=== PATIENT | male | born 1970 | race Caucasian/White ===

== ENCOUNTER 2022-12-28 07:33 | Observation (INO) ==
[2022-12-28] MEDS ORDERED: MoRPHine SULFATE 4 MG/ML 1 ML CARP\\VIAL IV STA ×5 (07:58→14:51)
[2022-12-28] MEDS ORDERED: ONDANSETRON INJ 2 MG/ML 2 ML VIAL IV STA (07:58)
[2022-12-28 08:05] LABS: iSTAT Creatinine 0.9 mg/dl (0.6-1.3); iSTAT Hemoglobin 15.3 g/dl (14.0-18.0); iSTAT Ionized Calcium 1.22 mmol/l (1.12-1.32); iSTAT Potassium 4.2 mmol/L (3.3-5.0)
--- NOTE | 2022-12-28 08:05 | Emergency Department Note ---
History of Present Illness General Chief complaint: Chest Pain Stated complaint: BURNING SENSATION IN CHEST, HX HEART ATTACK Time Seen by Provider: 12/28/22 07:47 Source: patient, family (Brother who is at the bedside and driving), RN notes reviewed and old records reviewed (Including a CAT scan of the chest done on 11-04-2020) Mode of arrival: ambulatory Limitations: no limitations History of Present Illness Maximum Pain Intensity: 8 This patient is a 52-year-old male who comes in with right-sided chest pain/righ t upper quadrant abdominal pain. It woke him up at around 4:00 this morning's been constant. He says nothing makes it better or worse he tried Pepto he walked around he took Tums without relief. No change with movement or breathing. He did take 3 baby aspirin at home he says it felt like he had indigestion. It hurts when he pushes on it as well. He does have a history of a heart attack and said that he was concerned he felt similar. He vomited. He has felt sweaty off and on. 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 He said he left his medicine in [facility] and is not taking his clopidogrel for 5 days. No trauma or injury. It does not rad iate to the back. He has had multiple orthopedic surgeries but still has his gallbladder. He did eat steak last night which she does not usually Home Medications Medication Instructions Recorded Confirmed Type aspirin 81 mg tablet,delayed 81 mg PO DAILY 11/04/20 12/28/22 History release atorvastatin 40 mg tablet 40 mg PO DAILY 11/04/20 12/28/22 History clopidogrel 75 mg tablet 75 mg PO DAILY 11/04/20 12/28/22 History lisinopril 5 mg tablet 5 mg PO DAILY 11/04/20 12/28/22 History nitroglycerin 0.4 mg sublingual 0.4 mg sublingual UD PRN Chest Pain 11/04/20 12/28/22 History tablet Allergies Allergy/AdvReac Type Severity Reaction Status Date / Time No Known Allergies Allergy Unverified 11/04/20 18:17 Past Med/Surg History Medical History History of OR (myocardial infarction) History of subdural hematoma On clopidogrel therapy Family History Other Family history non-contributory Social History Smoking Status: Unknown if ever smoked Tobacco Type: Cigarettes Feels Safe at Home: Yes Review of Systems A total of 10 systems reviewed and were otherwise negative Physical Exam Vital Signs Vital Signs - 24 hr 12/28/22 07:38 12/28/22 07:38 12/28/22 08:00 Temperature 36.5 C Temperature Source Oral Pulse Rate 63 61 Pulse Rate [Apical] Pulse Rhythm [Apical] Respiratory Rate 20 16 Respiratory Effort / Characteristics Non-Labored Spontaneous Non-Labored Spontaneous Respiratory Depth Normal Respiratory Pattern Regular Blood Pressure 179/105 H 154/91 H Blood Pressure [Right Arm] Blood Pressure Mean 129 112 Blood Pressure Mean [Right Arm] Blood Pressure Position [Right Arm] Pulse Oximetry 95 96 Oxygen Delivery Method Room Air Room Air Sepsis Recent Fever Within 48 Hours No Sepsis New/Unexplained Change in Mental Status N/A Sepsis Action Taken by Nursing No Action Required 12/28/22 08:17 12/28/22 08:30 12/28/22 09:00 Temperature Temperature Source Pulse Rate 70 64 63 Pulse Rate [Apical] Pulse Rhythm [Apical] Respiratory Rate 13 15 Respiratory Effort / Characteristics Respiratory Depth Respiratory Pattern Blood Pressure 137/85 165/95 H Blood Pressure [Right Arm] Blood Pressure Mean 102 118 Blood Pressure Mean [Right Arm] Blood Pressure Position [Right Arm] Pulse Oximetry 98 96 Oxygen Delivery Method Room Air Room Air Sepsis Recent Fever Within 48 Hours Sepsis New/Unexplained Change in Mental Status Sepsis Action Taken by Nursing 12/28/22 09:31 12/28/22 10:37 12/28/22 12:16 Temperature Temperature Source Pulse Rate 63 64 60 Pulse Rate [Apical] Pulse Rhythm [Apical] Respiratory Rate 15 16 Respiratory Effort / Characteristics Respiratory Depth Respiratory Pattern Blood Pressure 143/81 H 148/92 H Blood Pressure [Right Arm] Blood Pressure Mean 101 110 Blood Pressure Mean [Right Arm] Blood Pressure Position [Right Arm] Pulse Oximetry 96 96 Oxygen Delivery Method Room Air Room Air Sepsis Recent Fever Within 48 Hours Sepsis New/Unexplained Change in Mental Status Sepsis Action Taken by Nursing 12/28/22 13:37 Temperature Temperature Source Pulse Rate Pulse Rate [Apical] 54 L Pulse Rhythm [Apical] Regular Respiratory Rate 18 Respiratory Effort / Characteristics Non-Labored Spontaneous Respiratory Depth Normal Respiratory Pattern Regular Blood Pressure Blood Pressure [Right Arm] 115/70 Blood Pressure Mean Blood Pressure Mean [Right Arm] 85 Blood Pressure Position [Right Arm] Lying Pulse Oximetry 18 L Oxygen Delivery Method Sepsis Recent Fever Within 48 Hours Sepsis New/Unexplained Change in Mental Status Sepsis Action Taken by Nursing General: Well developed well nourished middle-age male who appears uncomfortable but in no acute respiratory distress, breathing comfortably on room air. Normal speech HEENT: Normal cephalic atraumatic. Pupils are equal round and reactive to light. Extraocular movements are intact. Oropharynx is pink with moist mucous membranes. No swelling of the mouth lips or tongue. Neck: Supple with a midline trachea. No meningeal signs or stiffness, no JVD or bruits. No Stridor. Chest: Clear to auscultation bilaterally. No wheezes or rhonchi. No increased work of breathing. Heart: Regular rate and rhythm without murmurs or gallops. Abdomen: Soft, he significantly reproducibly tender in the right upper quadrant. No rash. And, nondistended without rebound guarding or rigidity. Extremities: No cyanosis clubbing or edema. No calf tenderness or assymetry Spine/Back. Non tender to palpation. No CVA tenderness Skin: Good turgor without rashes. Neurologic exam: Cranial nerves two through 12 are intact. Motor and sensation are intact and symmetrical throughout. Course Administered Medications Sodium Chloride (Nss) 1,000 mls @ 125 mls/hr IV .Q8H POLLY Stop: 01/27/23 14:59 Last Admin: 12/28/22 14:59 Dose: 125 mls/hr Documented By: YIMI Discontinued Medications Piperacillin Sod/Tazobactam Sod (Zosyn) 4.5 gm in 100 mls @ 200 mls/hr IV NOW ONE Stop: 12/28/22 11:46 Last Infusion: 12/28/22 12:08 Dose: 0 mls/hr Documented By: Admin: 12/28/22 11:30 Dose: 200 mls/hr Documented By: YIMI Sodium Chloride (Nss) 1,000 mls @ 999 mls/hr IV .Q1H1M ONE Stop: 12/28/22 12:20 Last Infusion: 12/28/22 12:47 Dose: 0 mls/hr Documented By: Admin: 12/28/22 11:30 Dose: 999 mls/hr Documented By: YIMI Ioversol (Optiray 320 500ml) 108 ml IV ONCE ONE Stop: 12/28/22 09:48 Last Admin: 12/28/22 09:47 Dose: 108 ml Documented By: SAMSON Morphine Sulfate (Morphine Sulfate 4 Mg/Ml 1 Ml Carp\Vial) 4 mg IV NOW STA Stop: 12/28/22 07:59 Last Admin: 12/28/22 08:07 Dose: 4 mg Documented By: JANI Morphine Sulfate (Morphine Sulfate 4 Mg/Ml 1 Ml Carp\Vial) 4 mg IV NOW STA Stop: 12/28/22 09:22 Last Admin: 12/28/22 09:26 Dose: 4 mg Documented By: JANI Morphine Sulfate (Morphine Sulfate 4 Mg/Ml 1 Ml Carp\Vial) 4 mg IV NOW STA Stop: 12/28/22 11:02 Last Admin: 12/28/22 11:11 Dose: 4 mg Documented By: YIMI Morphine Sulfate (Morphine Sulfate 4 Mg/Ml 1 Ml Carp\Vial) 4 mg IV NOW STA Stop: 12/28/22 12:24 Last Admin: 12/28/22 12:28 Dose: 4 mg Documented By: YIMI Morphine Sulfate (Morphine Sulfate 4 Mg/Ml 1 Ml Carp\Vial) 4 mg IV NOW STA Stop: 12/28/22 14:52 Last Admin: 12/28/22 14:58 Dose: 4 mg Documented By: YIMI Ondansetron HCl (Ondansetron Inj 2 Mg/Ml 2 Ml Vial) 4 mg IV NOW STA Stop: 12/28/22 07:59 Last Admin: 12/28/22 08:07 Dose: 4 mg Documented By: JANI Medical Decision Making Differential Diagnosis Acute coronary syndrome, arrhythmia, gallbladder disease, pneumothorax, pulmonary disease, electrolyte or metabolic abnormality, infection Medical Records Attestation: I reviewed the patient's medical records. Home Medications Current Medication List: was personally reviewed by me Laboratory Data Attestation: I reviewed the patient's lab results. 12/28/22 07:45 12/28/22 07:45 Lab Results 12/28/22 12/28/22 12/28/22 Range/Units 07:45 07:45 07:45 WBC 9.16 (4.8-10.8) K/ul RBC 4.86 (4.70-6.10) M/uL Hgb 15.1 (14.0-18.0) g/dl POC Hgb (14.0-18.0) g/dl Hct 43.9 (42.0-52.0) % POC Hct (42-52) % MCV 90.3 (80.0-100.0) fL MCH 31.1 (25.0-34.0) pg MCHC 34.4 (32.0-36.0) g/dL RDW Std Deviation 39.3 (36.4-46.3) fL RDW Coeff of Candie 12.0 (11.5-14.5) % Plt Count 204 (130-400) K/uL MPV 10.1 (9.4-12.4) fL Immature Gran % (Auto) 0.3 % Neut % (Auto) 64.1 % Lymph % (Auto) 22.5 % [place] % (Auto) 9.1 % Eos % (Auto) 3.3 % Baso % (Auto) 0.7 % Neut # (Auto) 5.88 (1.40-6.50) K/uL Lymph # (Auto) 2.06 (1.20-3.40) K/uL [place] # (Auto) 0.83 H (0.11-0.59) K/uL Eos # (Auto) 0.30 (0.00-0.50) K/uL Baso # (Auto) 0.06 (0.00-0.20) K/uL Immature Gran # (Auto) 0.03 (0.01-0.20) K/uL PT 9.8 (9.0-12.0) Seconds INR 0.9 (0.9-1.1) APTT 28.9 (21.0-31.0) Seconds PTT Ratio 1.0 D-Dimer 250 (0-500) ug/L FEU POC Sodium (135-144) mmol/L Sodium 135 L (136-145) mmol/L POC Potassium (3.3-5.0) mmol/L Potassium 4.2 (3.5-5.1) mmol/L POC Chloride (101-112) mmol/L Chloride 104 (98-107) mmol/L Carbon Dioxide 25 (21-32) mmol/L POC Total CO2 (24-31) mmol/L Anion Gap 6 (3-11) POC Anion Gap (16-25) mmol/L POC BUN (7-18) mg/dl BUN 14 (6-23) mg/dl Creatinine 0.92 (0.6-1.4) mg/dl POC Creatinine (0.6-1.3) mg/dl Est Cr Clr Drug Dosing 120.4 ml/min Est GFR ( Amer) 110.4 ml/min Est GFR (Non-Af Amer) 95.3 ml/min BUN/Creatinine Ratio 15.2 (10-20) Glucose 113 H (70-99(Fasting)) mg/dl POC Glucose (other) (70-99) mg/dl Calcium 9.2 (8.6-10.3) mg/dl POC Ioniz Calcium Nicole (1.12-1.32) mmol/l Total Bilirubin 0.4 (0.2-1.0) mg/dl AST 29 (13-39) U/L ALT 25 (7-52) U/L Alkaline Phosphatase 83 (34-104) U/L Troponin I High Sens 4.1 (0-20) pg/ml Total Protein 7.6 (6.0-8.3) gm/dl Albumin 4.0 (3.4-5.0) gm/dl Globulin 3.6 (2.5-4.0) gm/dl Albumin/Globulin Ratio 1.1 (0.9-2) Lipase 37 (11-82) U/L Urine Color Urine Appearance (Clear) Urine pH (4.5-7.5) Ur Specific [place] (1.000-1.030) Urine Protein (Negative) Urine Glucose (UA) (Negative) Urine Ketones (Negative) Urine Blood (Negative) Urine Nitrite (Negative) Urine Bilirubin (Negative) Urine Urobilinogen (Negative) Ur Leukocyte Esterase (Negative) 12/28/22 12/28/22 12/28/22 Range/Units 07:52 09:19 10:05 WBC (4.8-10.8) K/ul RBC (4.70-6.10) M/uL Hgb (14.0-18.0) g/dl POC Hgb 15.3 (14.0-18.0) g/dl Hct (42.0-52.0) % POC Hct 45 (42-52) % MCV (80.0-100.0) fL MCH (25.0-34.0) pg MCHC (32.0-36.0) g/dL RDW Std Deviation (36.4-46.3) fL RDW Coeff of Candie (11.5-14.5) % Plt Count (130-400) K/uL MPV (9.4-12.4) fL Immature Gran % (Auto) % Neut % (Auto) % Lymph % (Auto) % [place] % (Auto) % Eos % (Auto) % Baso % (Auto) % Neut # (Auto) (1.40-6.50) K/uL Lymph # (Auto) (1.20-3.40) K/uL [place] # (Auto) (0.11-0.59) K/uL Eos # (Auto) (0.00-0.50) K/uL Baso # (Auto) (0.00-0.20) K/uL Immature Gran # (Auto) (0.01-0.20) K/uL PT (9.0-12.0) Seconds INR (0.9-1.1) APTT (21.0-31.0) Seconds PTT Ratio D-Dimer (0-500) ug/L FEU POC Sodium 137 (135-144) mmol/L Sodium (136-145) mmol/L POC Potassium 4.2 (3.3-5.0) mmol/L Potassium (3.5-5.1) mmol/L POC Chloride 103 (101-112) mmol/L Chloride (98-107) mmol/L Carbon Dioxide (21-32) mmol/L POC Total CO2 27 (24-31) mmol/L Anion Gap (3-11) POC Anion Gap 12.0 L (16-25) mmol/L POC BUN 15 (7-18) mg/dl BUN (6-23) mg/dl Creatinine (0.6-1.4) mg/dl POC Creatinine 0.9 (0.6-1.3) mg/dl Est Cr Clr Drug Dosing ml/min Est GFR ( Amer) ml/min Est GFR (Non-Af Amer) ml/min BUN/Creatinine Ratio (10-20) Glucose (70-99(Fasting)) mg/dl POC Glucose (other) 118 H (70-99) mg/dl Calcium (8.6-10.3) mg/dl POC Ioniz Calcium Nicole 1.22 (1.12-1.32) mmol/l Total Bilirubin (0.2-1.0) mg/dl AST (13-39) U/L ALT (7-52) U/L Alkaline Phosphatase (34-104) U/L Troponin I High Sens 4.2 (0-20) pg/ml Total Protein (6.0-8.3) gm/dl Albumin (3.4-5.0) gm/dl Globulin (2.5-4.0) gm/dl Albumin/Globulin Ratio (0.9-2) Lipase (11-82) U/L Urine Color Yellow Urine Appearance Clear (Clear) Urine pH 6.0 (4.5-7.5) Ur Specific [place] 1.011 (1.000-1.030) Urine Protein Negative (Negative) Urine Glucose (UA) Negative (Negative) Urine Ketones Negative (Negative) Urine Blood Negative (Negative) Urine Nitrite Negative (Negative) Urine Bilirubin Negative (Negative) Urine Urobilinogen Negative (Negative) Ur Leukocyte Esterase Negative (Negative) Imaging Data Attestation: I personally reviewed and interpreted this imaging study as follows: My Impression: Chest x-rayno acute infiltrate, failure, pneumothorax seen CT angiography of the chestno evidence of PE Radiologist's Impression: Chest X-Ray 12/28/22 07:58 XR chest 1V portable CLINICAL HISTORY: Chest pain, nonspecific TECHNIQUE: Single frontal radiograph of the chest was obtained. Comparison: Comparison is made to CT chest 11/04/2020 FINDINGS: No lines and tubes are seen. The cardiomediastinal silhouette is normal. The lungs are clear. No evidence of pleural effusion or pneumothorax. IMPRESSION: No acute chest disease. ACT 112: Negative or not required by law. Electronically signed by: Ke Garcia M.D. 12/28/2022 8:49 AM Abdomen/Pelvis CT 12/28/22 09:[address] WITH IV CONTRAST CT DOSE: 2519.96 mGy.cm HISTORY: Right upper quadrant pain. TECHNIQUE: Multiaxial CT images of the abdomen and pelvis were performed foll owing the use of intravenous contrast. A dose lowering technique was utilized adhering to the principles of ALARA. COMPARISON STUDY: Abdomen and pelvis CT 11/04/2020. FINDINGS: The lung bases will be reported on the same day chest CTA. No pneumoperitoneum. No pneumatosis. Old, healed right lower rib fracture. L5-S1 posterior decompression and fusion with pedicle screws and rods. The liver, pancreas, spleen, adrenal glands, and right kidney are unremarkable. There is a 4 mm stone within the lower pole of the left kidney. No ureteral stones. No hydronephrosis. The main portal vein is patent. Normal caliber abdominal aorta with mild calcified plaque. No retroperitoneal or pelvic lymphadenopathy. The gallbladder is mildly distended. There is mild gallbladder wall thickening and a small amount of pericholecystic fluid. These findings are suspicious for an acute cholecystitis. No pelvic free fluid. Normal bladder. No bowel wall thickening or obstruction. Normal appendix. IMPRESSION: Mildly distended gallbladder demonstrating a thickened wall and a small amount of pericholecystic fluid. These findings are suspicious for an acute cholecystitis. Surgical consultation recommended. ACT 112: Negative or not required by law. Electronically signed by: Bernardo Christopher M.D. 12/28/2022 10:24 AM Chest CTA 12/28/22 09:20 CT angio chest PE protocol CLINICAL HISTORY: PE TECHNIQUE: Multidetector row helical CT of the chest was performed with angiographic protocol. Coronal and sagittal reformations were obtained. Coronal and sagittal MIPS were obtained from the axial data set and were submitted for review. Automated dose lowering techniques and/or adjustment according to p atient size were utilized for this exam. Comparison: Comparison is made to CT chest 11/14/2020 FINDINGS: Lungs and pleura: Atelectasis versus scarring is seen in the dependent portions of the lungs. There is a 3 mm nodule in the left upper lobe (series 4 image 157) and a 3 mm nodule in the left upper lobe (image 178). Heart and pericardium: Heart size is normal. No pericardial effusion. Vessels: No evidence of pulmonary embolism. Mediastinum and bunny: Unremarkable. Chest wall and lower neck: Unremarkable. Abdomen: For findings below the diaphragm, please refer to CT of the abdomen dated the same. Bones: Mild degenerative changes are seen. IMPRESSION: No acute abnormality and in particular no evidence of pulmonary embolus. Stable tiny pulmonary nodules as above. ACT 112: Negative or not required by law. Electronically signed by: Ke Garcia M.D. 12/28/2022 10:26 AM ECG Data Attestation: I personally reviewed and interpreted this ECG as follows: Indication: + chest pain Rate (beats per minute): 60 Rhythm: + normal sinus ECG Intervals/blocks: + Incomplete right bundle branch block ECG [place]: + Normal ECG ST segments: + Normal ST segments ECG Findings: no PACs or no PVCs Comparison ECG Date: from (11/04/2020) Change: no significant change MDM Narrative This patient comes in as described above. He was placed in room A11. I saw him promptly. He has been having persistent chest pain for about 4 hours now. His EKG shows no ischemic changes to suggest STEMI at this point his pain is very reproducible in the right upper quadrant as this could also be gallbladder, a significant cardiac work-up was obtained. His i-STAT labs were unremarkable in regards to kidney function and electrolytes and hemoglobin. His brother is at the bedside and driving. He has already taken aspirin. He was given morphine 4 mg IV and Zofran 4 mg IV. Chest x-ray multiple blood testing was obtained he was reassessed frequently. Chest x-ray was unremarkable. Cardiac enzymes/tr oponin x2 was unremarkable done 2 hours apart. He has no significant acrylate or metabolic abnormalities no white count or fever discussed infection has normal LFTs and lipase. I did do a CT angiography of the chest there is no evidence of PE I continued through the abdomen and the gallbladder appears to be distended with findings consistent likely with acute cholecystitis he examines like acute cholecystitis. I did consult surgery and Jillian Corona saw the patient in the ER. She initially told me to do an ultrasound but after seeing the patient she canceled it and said they are just going to take him to the OR. I did give the patient antibiotics with Zosyn 4.5 g IV. He was hydrated with an 1 L IV normal saline bolus and kept on normal saline 125-hour maintenance rate. He was kept n.p.o. for anticipated surgery. He has required multiple doses of IV morphine while he was in the ER but has remained stable. He will go to the OR from the emergency department for cholecystectomy and be admitted by the surgical team. He is on clopidogrel however he has not taken it for 5 days as he left his medication in [place]. 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 of antithrombotics/antiplatelets Discharge Plan Visit Data Chief Complaint: Chest Pain Stated Complaint: BURNING SENSATION IN CHEST, HX HEART ATTACK ED Provider: Sammy Guerra Discharge Problem: Acute cholecystitis, Chest pain, Abdominal pain, senior living (current) use of antithrombotics/antiplatelets Forms Stand Alone Forms: My [facility] Prescriptions Prescriptions: No Action atorvastatin 40 mg tablet 40 mg PO DAILY clopidogrel 75 mg tablet 75 mg PO DAILY aspirin 81 mg tablet,delayed release (DR/EC) 81 mg PO DAILY nitroglycerin 0.4 mg tablet, sublingual 0.4 mg sublingual UD PRN (Reason: Chest Pain) lisinopril 5 mg tablet 5 mg PO DAILY Referrals Referrals: PCP,NO [Primary Care Provider] -
[2022-12-28 08:22] LABS: Basophils # (auto) 0.06 K/uL (0.00-0.20); Basophils % (auto) 0.7 %; Eosinophils % (auto) 3.3 %; Hematocrit (blood only) 43.9 % (42.0-52.0); Hemoglobin 15.1 g/dl (14.0-18.0); Immature Granulocytes # (auto) 0.03 K/uL (0.01-0.20); Immature Granulocytes % (auto) 0.3 %; Lymphocytes # (auto) 2.06 K/uL (1.20-3.40); Lymphocytes % (auto) 22.5 %; Mean Corpuscular Hemoglobin 31.1 pg (25.0-34.0); Mean Corpuscular Hgb Conc 34.4 g/dL (32.0-36.0); Mean Corpuscular Volume 90.3 fL (80.0-100.0); Mean Platelet Volume 10.1 fL (9.4-12.4); Monocytes # (auto) 0.83 K/uL (0.11-0.59); Monocytes % (auto) 9.1 %; Neutrophils # (auto) 5.88 K/uL (1.40-6.50); Neutrophils % (auto) 64.1 %; Platelet Count 204 K/uL (130-400); RDW Standard Deviation 39.3 fL (36.4-46.3); Red Blood Count 4.86 M/uL (4.70-6.10); White Blood Count 9.16 K/ul (4.8-10.8)
[2022-12-28 08:40] LABS: Albumin Globulin Ratio 1.1 (0.9-2); BUN Creatinine Ratio 15.2 (10-20); Bilirubin,Total 0.4 mg/dl (0.2-1.0); Calcium 9.2 mg/dl (8.6-10.3); Creatinine Clr Calc Pharmacy 120.4 ml/min; Est GFR (African American) 110.4 ml/min; Est GFR (Non-African American) 95.3 ml/min; Globulin 3.6 gm/dl (2.5-4.0); Total Protein 7.6 gm/dl (6.0-8.3)
[2022-12-28 08:41] LABS: Troponin I High Sensitivity 4.1 pg/ml (0-20)
[2022-12-28 08:45] LABS: Potassium 4.2 mmol/L (3.5-5.1)
--- NOTE | 2022-12-28 08:51 | XRay Report ---
XR chest 1V portable CLINICAL HISTORY: Chest pain, nonspecific TECHNIQUE: Single frontal radiograph of the chest was obtained. Comparison: Comparison is made to CT chest 11/04/2020 FINDINGS: No lines and tubes are seen. The cardiomediastinal silhouette is normal. The lungs are clear. No evid ence of pleural effusion or pneumothorax. IMPRESSION: No acute chest disease. ACT 112: Negative or not required by law. Electronically signed by: Ke Garcia M.D. 12/28/2022 8:49 AM
[2022-12-28 08:55] LABS: D Dimer 250 ug/L FEU (0-500); INR 0.9 (0.9-1.1); Partial Thromboplastin Time 28.9 Seconds (21.0-31.0); Prothrombin Time 9.8 Seconds (9.0-12.0)
[2022-12-28 09:43] LABS: Appearance Urine Clear (Clear); Bilirubin Urine Negative (Negative); Blood Urine Negative (Negative); Color Urine Yellow; Glucose Urine UA Negative (Negative); Ketones Urine Negative (Negative); Leukocyte Esterase Urine Negative (Negative); Nitrite Urine Negative (Negative); Protein Urine Negative (Negative); Specific Gravity Urine 1.011 (1.000-1.030); Urobilinogen Urine Negative (Negative)
--- NOTE | 2022-12-28 09:43 | Electrocardiogram Report ---
Test Reason : Blood Pressure : / mmHG Vent. Rate : 060 BPM Atrial Rate : 060 BPM P-R Int : 168 ms QRS Dur : 106 ms QT Int : 420 ms P-R-T Axes : 010 022 070 degrees QTc Int : 420 ms Normal sinus rhythm Incomplete right bundle branch block Borderline ECG When compared with ECG of 04-NOV-2020 18:17, Incomplete right bundle branch block is now Present Confirmed by Krishna Cooper ([id number]) on 12/28/2022 9:42:38 AM Referred By: Confirmed By:Ji Cooper
[2022-12-28] MEDS ORDERED: OPTIRAY 320 500ml IV ONE (09:47)
--- NOTE | 2022-12-28 10:26 | CT Scan Report ---
ABDOMEN AND PELVIS CT WITH IV CONTRAST CT DOSE: 2519.96 mGy.cm HISTORY: Right upper quadrant pain. TECHNIQUE: Multiaxial CT images of the abdomen and pelvis were performed following the use of intrave nous contrast. A dose lowering technique was utilized adhering to the principles of ALARA. COMPARISON STUDY: Abdomen and pelvis CT 11/04/2020. FINDINGS: The lung bases will be reported on the same day chest CTA. No pneumoperitoneum. No pneumato sis. Old, healed right lower rib fracture. L5-S1 posterior decompression and fusion with pedicle scre ws and rods. The liver, pancreas, spleen, adrenal glands, and right kidney are unremarkable. There is a 4 mm stone within the lower pole of the left kidney. No ureteral stones. No hydronephrosis. The ma in portal vein is patent. Normal caliber abdominal aorta with mild calcified plaque. No retroperitone al or pelvic lymphadenopathy. The gallbladder is mildly distended. There is mild gallbladder wall thi ckening and a small amount of pericholecystic fluid. These findings are suspicious for an acute franco cystitis. No pelvic free fluid. Normal bladder. No bowel wall thickening or obstruction. Normal appen sharonda. IMPRESSION: Mildly distended gallbladder demonstrating a thickened wall and a small amount of pericholecystic flu id. These findings are suspicious for an acute cholecystitis. Surgical consultation recommended. ACT 112: Negative or not required by law. Electronically signed by: Bernardo Christopher M.D. 12/28/2022 10:24 AM
--- NOTE | 2022-12-28 10:28 | CT Scan Report ---
CT angio chest PE protocol CLINICAL HISTORY: PE TECHNIQUE: Multidetector row helical CT of the chest was performed with angiographic protocol. Yuen l and sagittal reformations were obtained. Coronal and sagittal MIPS were obtained from the axial nat a set and were submitted for review. Automated dose lowering techniques and/or adjustment according to patient size were utilized for this exam. Comparison: Comparison is made to CT chest 11/14/2020 FINDINGS: Lungs and pleura: Atelectasis versus scarring is seen in the dependent portions of the lungs. There i s a 3 mm nodule in the left upper lobe (series 4 image 157) and a 3 mm nodule in the left upper lobe (image 178). Heart and pericardium: Heart size is normal. No pericardial effusion. Vessels: No evidence of pulmonary embolism. Mediastinum and bunny: Unremarkable. Chest wall and lower neck: Unremarkable. Abdomen: For findings below the diaphragm, please refer to CT of the abdomen dated the same. Bones: Mild degenerative changes are seen. IMPRESSION: No acute abnormality and in particular no evidence of pulmonary embolus. Stable tiny pulmonary nodule s as above. ACT 112: Negative or not required by law. Electronically signed by: Ke Garcia M.D. 12/28/2022 10:26 AM
--- NOTE | 2022-12-28 11:16 | Surgery Consultation ---
Date of Consultation December 28, 2022 Assessment & Plan (1) Abdominal pain: Pateint is a 52 yo male with PMH of heart attack , HDL, that presented to the [facility] ER today with c/o chest pain that started this morning while sleeping at 0400. Patient describes CP as stabbing , sharp that radiates from the right side of his chest to the left which he notes felt similar to his last heart attack. Patient has had an EKG, Chest xray, Chest ABdominal/ pelvis CT all of which including labs have been negative for an acute Cardiac event. Patient report he ate steak last night for dinner around 0 and last drank sips of H2O this AM. 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 Patient reports he mistakenly forgot all his medication in [place] and has been without his Clopidogrel and atorvastatin for the last 5 days. He has however been taking aspirin 81mg and lisinopril which he had here. WBC and LFT WNL CT scan IMPRESSION: Mildly distended gallbladder demonstrating a thickened wall and a small amount of pericholecystic fluid. These findings are suspicious for an acute cholecystitis. Surgical consultation recommended. Patient at risk for a blood clot given he has not been taking his Clopidogrel Keep NPO Discussed with on-call surgeon Dr. Richardson Will add patient to the OR schedule for a Laparoscopic Cholecystectomy As above. Patient seen. CT scan reviewed. Patient with right upper quadrant pain. Gallbladder wall thickening and pericholecystic fluid on imaging. Discussed the risks and options. Recommend cholecystectomy. Discussed bleeding, infection, injury to a bile duct or bile leak, injury to other organs, DVT, PE, OR, CVA etc. Following our discussion I answered all of his questions. He agrees with the plan. We will proceed this afternoon with laparoscopic cholecystectomy. History of Present Illness Reason for Consultation: RUQ pain Requesting Physician: Dr. Guerra History of Present Illness Pateint is a 52 yo male with PMH of heart attack , HDL, that presented to the [facility] ER today with c/o chest pain that started this morning while sleeping at 0400. Patient describes CP as stabbing , sharp that radiates from the right side of his chest to the left which he notes felt similar to his last heart attack. Patient has had an EKG, Chest xray, Chest ABdominal/ pelvis CT all of which including labs have been negative for an acute Cardiac event. Patient report he ate steak last night for dinner around 2130 and last drank sips of H2O this AM. 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 Patient reports he mistakenly forgot all his medication in [place] and has been without his Clopidogrel and atorvastatin for the last 5 days. He has however been taking aspirin 81mg and lisinopril which he had here. Denies past abdominal surgery. Allergies Allergy/AdvReac Type Severity Reaction Status Date / Time No Known Allergies Allergy Unverified 11/04/20 18:17 Home Medications Medication Instructions Recorded Confirmed Type aspirin 81 mg tablet,delayed 81 mg PO DAILY 11/04/20 12/28/22 History release atorvastatin 40 mg tablet 40 mg PO DAILY 11/04/20 12/28/22 History clopidogrel 75 mg tablet 75 mg PO DAILY 11/04/20 12/28/22 History lisinopril 5 mg tablet 5 mg PO DAILY 11/04/20 12/28/22 History nitroglycerin 0.4 mg sublingual 0.4 mg sublingual UD PRN Chest Pain 11/04/20 12/28/22 History tablet Patient History Medical History History of [place] (myocardial infarction) History of subdural hematoma On clopidogrel therapy Family History Other Family history non-contributory Social History Smoking Status: Unknown if ever smoked Tobacco Type: Cigarettes Feels Safe at Home: Yes Review of Systems Constitutional: no fever and no chills Respiratory: no dyspnea Cardiovascular: + chest pain; no dyspnea on exertion Gastrointestinal: no nausea and no vomiting Genitourinary: no problem reported Physical Exam Physical Exam: alert oriented Constitutional: well developed, cooperative and comfortable; no acute distress Respiratory: normal respiratory effort and able to speak in complete sentences; no respiratory distress Cardiovascular: Rate/Rhythm: regular rate EKG was read negative for acute cardiac event Gastrointestinal (Abdomen): Percussion/Palpation: + abdomen tender, + guarding and abdomen soft TTP in RUQ rates pain a 6/10 , obese abdomen Results & Data Vital Signs (Past 12 Hours) Vital Signs Temp Pulse Resp BP Pulse Ox O2 Del Method 12/28/22 10:37 64 16 148/92 H 96 Room Air 12/28/22 09:31 63 15 143/81 H 96 Room Air 12/28/22 09:00 63 15 165/95 H 96 Room Air 12/28/22 08:30 64 13 137/85 98 Room Air 12/28/22 08:17 70 12/28/22 08:00 61 16 154/91 H 96 Room Air 12/28/22 07:38 97.7 F 63 20 179/105 H 95 Room Air Diagnostic Findings [place], [place] [phone] CT Scan Report Patient:OTF GUTIERREZ Admit Date:12/28/22 MR#:[id number] Address1:[address] [place] [address] Acct ID:[id number] Address2: Date:1970 [facility] Zip:[place] [address] Age:52 Location:ED Sex:M Room/Bed: Att Phy: Diagnosis:BURNING SENSATION IN CHEST, HX HEART ATTACK Sofy Phy:PCP,NO Service Date:12/28/22 Fam Phy: Interpreting Phy:Bernardo Christopher MDAdmit Phy: Ordering Phy:Sammy Guerra M.D. cc: ABDOMEN AND PELVIS CT WITH IV CONTRAST CT DOSE: 2519.96 mGy.cm HISTORY: Right upper quadrant pain. TECHNIQUE: Multiaxial CT images of the abdomen and pelvis were performed following the use of intravenous contrast. A dose lowering technique was utilized adhering to the principles of ALARA. COMPARISON STUDY: Abdomen and pelvis CT 11/04/2020. FINDINGS: The lung bases will be reported on the same day chest CTA. No pneumoperitoneum. No pneumatosis. Old, healed right lower rib fracture. L5-S1 posterior decompression and fusion with pedicle screws and rods. The liver, pancreas, spleen, adrenal glands, and right kidney are unremarkable. There is a 4 mm stone within the lower pole of the left kidney. No ureteral stones. No hydronephrosis. The main portal vein is patent. Normal caliber abdominal aorta with mild calcified plaque. No retroperitoneal or pelvic lymphadenopathy. The gallbladder is mildly distended. There is mild gallbladder wall thickening and a small amount of pericholecystic fluid. These findings are suspicious for an acute cholecystitis. No pelvic free fluid. Normal bladder. No bowel wall thickening or obstruction. Normal appendix. IMPRESSION: Mildly distended gallbladder demonstrating a thickened wall and a small amount of pericholecystic fluid. These findings are suspicious for an acute cholecystitis. Surgical consultation recommended. ACT 112: Negative or not required by law. Electronically signed by: Bernardo Christopher M.D. 12/28/2022 10:24 AM Dictated:12/28/22 1019 Transcribed: 12/28/22 1019 PG Care Time/CCT Total # of Minutes Spent Total Time Spent with Patient: Total time spent is greater than 50% in coordination of care (as documented) at patient's floor/unit and/or counseling patient: Coding Level of Care Code 94526 OFFICE CONSULT LVL 05/27M Diagnoses Abdominal pain R10.11 Abdominal location: right upper quadrant (1) Abdominal pain Abdominal location: right upper quadrant Qualified Code(s): R10.11 - Right upper quadrant pain
[2022-12-28] MEDS ORDERED: PIPERACILLIN/TAZOBACTAM 4.5 GM/100 ML BAG IV ONE (11:17)
[2022-12-28] MEDS ORDERED: SODIUM CHLORIDE 0.9% 1,000 ML IV ONE (11:20)
[2022-12-28] MEDS ORDERED: MIDAZOLAM HCL 1 MG/ML 2ML VIAL ONE (14:44)
[2022-12-28] MEDS ORDERED: fentaNYL citrate PF 100 MCG/2 ML VIAL ONE ×2 (14:44→17:28)
--- NOTE | 2022-12-28 14:47 | Anesthesiology Consultation ---
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 Surgery Operation Date: 12/28/22 13:35 Proposed Procedures p Laparoscopic Cholecystectomy - Pako Richardson DO Height/Weight Height: 5 ft 10 in Weight: 117 kg Allergies Allergy/AdvReac Type Severity Reaction Status Date / Time No Known Allergies Allergy Unverified 11/04/20 18:17 Medications Home Medications Medication Instructions Recorded Confirmed Last Taken aspirin 81 mg tablet,delayed 81 mg PO DAILY 11/04/20 12/28/22 Unknown release atorvastatin 40 mg tablet 40 mg PO DAILY 11/04/20 12/28/22 Unknown clopidogrel 75 mg tablet 75 mg PO DAILY 11/04/20 12/28/22 Unknown lisinopril 5 mg tablet 5 mg PO DAILY 11/04/20 12/28/22 Unknown nitroglycerin 0.4 mg sublingual 0.4 mg sublingual UD PRN Chest Pain 11/04/20 12/28/22 Unknown tablet Past Medical History Medical History History of [place] (myocardial infarction) History of subdural hematoma On clopidogrel therapy Past Family History Family History Other Family history non-contributory Social History Smoking Status: Unknown if ever smoked Physical Exam Vital Signs Last Vital Signs Temp 97.7 F 12/28/22 07:38 Pulse 54 L 12/28/22 13:37 Resp 18 12/28/22 13:37 BP 115/70 12/28/22 13:37 Pulse Ox 18 L 12/28/22 13:37 O2 Del Method Room Air 12/28/22 10:37 Testing Laboratory Results 12/28/22 07:45 12/28/22 07:45 PT 9.8 Seconds (9.0-12.0) 12/28/22 07:45 INR 0.9 (0.9-1.1) 12/28/22 07:45 APTT 28.9 Seconds (21.0-31.0) 12/28/22 07:45 Urine Color Yellow 12/28/22 09:19 Urine Appearance Clear (Clear) 12/28/22 09:19 Urine pH 6.0 (4.5-7.5) 12/28/22 09:19 Ur Specific [place] 1.011 (1.000-1.030) 12/28/22 09:19 Urine Protein Negative (Negative) 12/28/22 09:19 Urine Glucose (UA) Negative (Negative) 12/28/22 09:19 Urine Ketones Negative (Negative) 12/28/22 09:19 Urine Nitrite Negative (Negative) 12/28/22 09:19 Ur Leukocyte Esterase Negative (Negative) 12/28/22 09:19 12/28/22 07:52 POC Glucose (other) 118 H Electrocardiogram Date: 12/28/22 Normal sinus rhythm, rate 60 bpm Incomplete right bundle branch block Borderline ECG When compared with ECG of 04-NOV-2020 18:17, Incomplete right bundle branch block is now Present Confirmed by Krishna Cooper ([id number]) on 12/28/2022 9:42:38 AM Chest X-Ray Date: 12/28/22 Findings: + NAD
[2022-12-28] MEDS ORDERED: SODIUM CHLORIDE 0.9% 1,000 ML IV SCH (15:00)
[2022-12-28] MEDS ORDERED: PROMETHAZINE HCL 6.25 MG in SODIUM CHLORIDE 0.9% 50 ML IV PRN (16:00)
[2022-12-28] MEDS ORDERED: ONDANSETRON INJ 2 MG/ML 2 ML VIAL IV PRN ×2 (16:00→19:48)
[2022-12-28] MEDS ORDERED: ATROPINE SULFATE 0.1 MG/ML 10ML SYR IV PRN (16:00)
[2022-12-28] MEDS ORDERED: LABETALOL HCL IV 5 MG/ML 20ML IV PRN (16:00)
[2022-12-28] MEDS ORDERED: KETOROLAC 30 MG/ML VIAL IV PRN (16:00)
[2022-12-28] MEDS ORDERED: BUPIVACAINE/EPINEPHRINE 0.5% MPF 1:200,000 30 ML VIAL ONE (16:05)
[2022-12-28] MEDS ORDERED: LIDOCAINE 2% 2 ML VIAL/AMP(20MG/ML) INFIL ONE (16:57)
[2022-12-28] MEDS ORDERED: PROPOFOL IV EMULSION 10 MG/ML 20 ML VIAL IV ONE (16:57)
[2022-12-28] MEDS ORDERED: ROCURONIUM BROMIDE 10 MG/ML 5 ML VIAL IV ONE (16:57)
[2022-12-28] MEDS ORDERED: DEXAMETHASONE SOD INJ 4 MG/ML VIAL ONE (16:57)
[2022-12-28] MEDS ORDERED: ONDANSETRON INJ 2 MG/ML 2 ML VIAL ONE (16:57)
[2022-12-28] MEDS ORDERED: ePHEDrine sulfate 50 MG/5 ML SYR ONE (16:57)
[2022-12-28] MEDS ORDERED: NEOSTIGMINE METHYLSULFATE 1 MG/ML 10ML VIAL ONE (17:04)
[2022-12-28] MEDS ORDERED: ESMOLOL HCL INJ 10 MG/ML 10ML VIAL IV ONE (17:04)
[2022-12-28] MEDS ORDERED: KETOROLAC 30 MG/ML VIAL ONE (17:04)
[2022-12-28] MEDS ORDERED: GLYCOPYRROLATE 0.2 MG/ML VIAL ONE (17:04)
--- NOTE | 2022-12-28 18:07 | Operative Report ---
PG Post Operative Report Pre & Post Diagnosis Operation Date: 12/28/22 13:35 Pre-Op Diagnosis: Acute cholecystitis Post-Op Diagnosis: Acute cholecystitis I identified the patient and participated in the time-out.: Yes Procedure Operation Date: 12/28/22 13:35 Actual Procedures p Laparoscopic Cholecystectomy(Not Applicable) - Pako Richardson DO Surgeon Pako Richardson DO Swage Tender n/a Estimated Blood Loss 10 Findings Consistent with Post-Op Diagnosis Specimens gallbladder Description of Procedure After informed consent was obtained the patient was taken to the operating room and placed in the supine position. After successful intubation the abdomen was sterilely prepped and draped in usual fashion. A periumbilical incision was made with an 11 blade scalpel and carried down through the soft tissue using electrocautery. The anterior rectus fascia was opened using electrocautery and 2 #0 Vicryl stay sutures were placed. The peritoneum was elevated with hemostats and incised under direct vision using Metzenbaum scissors. A finger sweep was performed and a 12 mm Solis trocar was placed. The abdomen was insuf flated to 18 mmHg. The laparoscope was inserted and the abdomen was examined in 360. No gross abnormalities were identified. A subxiphoid 5 mm port and 2 right upper quadrant 5 mm ports were placed under direct vision. The patient was placed in a reverse Trendelenburg position and slightly airplaned to the left. The gallbladder was acutely inflamed. I used a gallbladder needle and 20 cc syringe to drain about 30 cc of bile from the gallbladder initially. Next, the gallbladder was grasped and elevated superiorly and laterally. A [place] dissector was used to take down adhesions around the neck of the gallbladder. The cystic duct was identified and skeletonized. It was clipped twice proximally and once distally and transected using a laparoscopic scissor. In similar fashion the cystic artery was identified and skeletonized clipped and divided. The gallbladder was removed from the gallbladder fossa with electrocautery. It was placed into an Endo Catch bag. Thorough irrigation was performed. At the end of the procedure there was adequate hemostasis and no evidence of any bile leaks. A final look around the abdomen showed no other abnormalities. The gallbladder and trochars were all removed and the abdomen was desufflated. The fascia of the camera port was closed using 0 Vicryl in a [id number] fashion. All the wounds were irrigated and closed using 4-0 Monocryl. Marcaine was injected around them for postoperative analgesia and skin glue used as a dressing. The patient was awakened, extubated and transferred to recovery in stable condition. I attest to the content of the Intraoperative Record and any orders documented therein. Any exceptions are noted below.
--- NOTE | 2022-12-28 18:14 | Anesthesiology Progress Note ---
Date of Service December 28, 2022 Anesthesia Post Procedure Vital Signs Vital Signs: Temp Pulse Pulse Resp BP BP BP 12/28/22 18:05 62 13 140/90 12/28/22 17:55 60 13 147/85 H 12/28/22 17:45 59 L 14 157/78 H 12/28/22 17:35 36.1 C L 61 23 180/91 H 12/28/22 15:45 36.6 C 64 18 153/88 H 12/28/22 15:39 12/28/22 13:37 54 L 18 115/70 12/28/22 12:16 60 12/28/22 10:37 64 16 148/92 H 12/28/22 09:31 63 15 143/81 H 12/28/22 09:00 63 15 165/95 H 12/28/22 08:30 64 13 137/85 12/28/22 08:17 70 12/28/22 08:00 61 16 154/91 H 12/28/22 07:38 36.5 C 63 20 179/105 H Pulse Ox O2 Del Method O2 Flow Rate 12/28/22 18:05 95 Oxymask 5 12/28/22 17:55 95 Oxymask 5 12/28/22 17:45 94 Oxymask 5 12/28/22 17:35 96 Room Air 12/28/22 15:45 98 Room Air 12/28/22 15:39 Room Air 12/28/22 13:37 18 L 12/28/22 12:16 12/28/22 10:37 96 Room Air 12/28/22 09:31 96 Room Air 12/28/22 09:00 96 Room Air 12/28/22 08:30 98 Room Air 12/28/22 08:17 12/28/22 08:00 96 Room Air 12/28/22 07:38 95 Room Air Pain Intensity Abdomen: Pain Intensity: 5 Transfer of Care Handoff Completed per policy Notes Mental Status: alert / awake / arousable and participated in evaluation Patient Amnestic to Procedure: Yes Nausea / Vomiting: adequately controlled Pain: adequately controlled Airway Patency, RR, SpO2: stable & adequate BP & HR: stable & adequate Hydration State: stable & adequate Anesthetic Complications: no major complications apparent
[2022-12-28] MEDS: fentaNYL citrate PF 100 MCG/2 ML VIAL IV PRN ×2 (19:05→19:10)
[2022-12-28] MEDS ORDERED: HYDROmorphone INJ 0.5 MG/0.5 ML SYR IV PRN (19:48)
[2022-12-28] MEDS ORDERED: oxyCODONE/ACETAMINOPHEN 5mg/325mg TAB PO PRN (19:48)
[2022-12-28] MEDS: oxyCODONE/ACETAMINOPHEN 5mg/325mg TAB PO PRN (20:57)
[2022-12-28] MEDS: ceFAZolin 2000MG 2,000 MG/15 ML SYR IV SCH (21:46)
[2022-12-28] MEDS: HYDROmorphone INJ 0.5 MG/0.5 ML SYR IV PRN (23:35)
[2022-12-29] MEDS: oxyCODONE/ACETAMINOPHEN 5mg/325mg TAB PO PRN ×2 (01:19→08:45)
[2022-12-29] MEDS: HYDROmorphone INJ 0.5 MG/0.5 ML SYR IV PRN ×2 (02:54→08:33)
[2022-12-29] MEDS: ceFAZolin 2000MG 2,000 MG/15 ML SYR IV SCH (04:11)
[2022-12-29 08:02] LABS: Basophils # (auto) 0.01 K/uL (0.00-0.20); Basophils % (auto) 0.1 %; Eosinophils # (auto) 0.01 K/uL (0.00-0.50); Eosinophils % (auto) 0.1 %; Hematocrit (blood only) 40.3 % (42.0-52.0); Immature Granulocytes # (auto) 0.04 K/uL (0.01-0.20); Immature Granulocytes % (auto) 0.4 %; Lymphocytes # (auto) 1.26 K/uL (1.20-3.40); Lymphocytes % (auto) 11.5 %; Mean Corpuscular Hemoglobin 30.8 pg (25.0-34.0); Mean Corpuscular Hgb Conc 34.7 g/dL (32.0-36.0); Mean Corpuscular Volume 88.6 fL (80.0-100.0); Monocytes # (auto) 0.72 K/uL (0.11-0.59); Monocytes % (auto) 6.6 %; Neutrophils # (auto) 8.93 K/uL (1.40-6.50); Neutrophils % (auto) 81.3 %; Platelet Count 189 K/uL (130-400); RDW Coefficient of Variation 11.9 % (11.5-14.5); RDW Standard Deviation 38.6 fL (36.4-46.3); Red Blood Count 4.55 M/uL (4.70-6.10); White Blood Count 10.97 K/ul (4.8-10.8)
[2022-12-29 08:20] LABS: Albumin Globulin Ratio 1.3 (0.9-2); Albumin Level 3.8 gm/dl (3.4-5.0); Bilirubin,Total 0.6 mg/dl (0.2-1.0); Calcium 8.5 mg/dl (8.6-10.3); Creatinine Clr Calc Pharmacy 120.4 ml/min; Est GFR (African American) 110.4 ml/min; Est GFR (Non-African American) 95.3 ml/min; Potassium 4.4 mmol/L (3.5-5.1); Total Protein 6.8 gm/dl (6.0-8.3)
--- NOTE | 2022-12-29 08:36 | Surgery Progress Note ---
Date of Service December 29, 2022 Assessment & Plan (1) Acute cholecystitis: Plan: Doing as expected. Okay for discharge today. He is adamant about returning to [facility] on Tuesday. I am going to put him back on his Plavix and told him he needs to discuss with his physician when he gets back to [facility] regarding if he needs to be on it or not. Instructions given. He is to follow-up with his family physician when he gets home. Admission and Anticipated Discharge Date Admission Date: December 28, 2022 Subjective Patient seen. He is having incisional discomfort but feeling much better than he did preoperatively. He is tolerating diet Physical Exam Physical Exam: Alert no acute distress Abdomen soft with expected tenderness. Incisions look good Results & Data Vital Signs (Past 12 Hours) Vital Signs Temp Pulse Pulse Resp BP Pulse Ox O2 Del Method 12/29/22 08:22 36.6 C 67 18 131/75 95 Room Air 12/29/22 03:34 36.8 C 71 18 144/74 H 99 Room Air 12/28/22 22:53 36.9 C 60 18 140/75 98 Room Air 12/28/22 22:00 36.6 C 64 18 134/74 96 Room Air 12/28/22 21:03 36.8 C 74 18 120/73 96 Room Air PG Care Time/CCT Total # of Minutes Spent Total Time Spent with Patient: Total time spent is greater than 50% in coordination of care (as documented) at patient's floor/unit and/or counseling patient: Coding Level of Care Code 11456 Post Operative Follow-Up Diagnoses Acute cholecystitis K81.0
== END 2022-12-29 10:13 | disposition home or self-care (01) ==
LOC: ED 07:33 → OR 15:39 → 3W 15:39